=== PATIENT | female | born 2000 | race Caucasian/White ===

== ENCOUNTER 2023-12-18 15:49 | Emergency (ER) | payer OTHER, SELFPAY ==
[2023-12-18 15:49] VITALS: BMI 23.9
[2023-12-18 16:06] VITALS: BP 146/105
--- NOTE | 2023-12-18 17:56 | ED.SKININJ ---
HPI-Injury
General
Chief Complaint: Bite
Time Seen by Provider: 12/18/23 17:29
Travel History
Have you had any contact with someone who has COVID-19?: No
Do you have any symptoms of coronavirus? Fever > 100 degrees, chills, cough, shortness of breath, sore throat, loss of taste or smell, muscle aches, or headache?: No
History of Present Illness-Injury
Initial Injury comments:
23-year-old female presents to the emergency department for evaluation of a bite wound to the right index finger from an unvaccinated cat. 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 The animal is since
and his brain will be sampled for rabies. Patient states her company's protocol is to initiate the rabies postexposure prophylaxis, last tetanus was last year
Review of Systems
Review of Systems
Allergies reviewed?: Yes
All Other Systems: ROS reviewed and negative except as documented in HPI and ROS
Phy Exam
Physical Exam
Physical Exam:
GEN: Well appearing, NAD, WDWN
HEENT: Oral mucosa moist, no scleral icterus
Cardiac: Regular rate
Lung: No respiratory distress, no tachypnea
MSK: No gross deformity or injuries
Skin: Good color, no pallor or jaundice, no rashes. Faint puncture wound to the right index finger pad
Neuro: AO x3, moves all extremities freely
Psych: Calm, cooperative
Course
Orders/Labs/Results
Orders:
Orders
12/18/23 17:48
Rabies Immune Globulin/Pf [HyperRAB] 1,260 unit IM NOW STA
12/18/23 18:00
Rabies Vaccine (Pcec)/Pf [Rabavert Rabies Vacc W-Diluent] 2.5 unit IM .ONCE ONE
Vital Signs
Initial and Last Documented VS:
Initial Vital Signs
Temp Pulse Resp BP Pulse Ox
98.7 F 114 22 146/105 100
12/18/23 16:06 12/18/23 16:06 12/18/23 16:06 12/18/23 16:06 12/18/23 16:06
Last Documented Vital Signs
Temp Pulse Resp BP Pulse Ox
98.7 F 114 22 146/105 100
12/18/23 16:06 12/18/23 16:06 12/18/23 16:06 12/18/23 16:06 12/18/23 16:06
MDM/Problems Addressed
MDM/Problems Addressed:
Will initiate rabies postexposure prophylaxis due to the unvaccinated nature of the cat, prophylactic Augmentin for 5 days
*Critical Care Note
Total Time (30-74mins, 75-104mins- exclusive of procedures): Not Applicable
ED Attending Note
-
Portions of this chart may have been created with voice recognition software.� Occasional wrong word or��sound alike� substitutions may have occurred due to the inherent limitations of voice recognition software.
Discharge Plan
Departure
Patient Disposition: Home (Routine Discharge)
Date of Disposition: 12/18/23
Time of Disposition: 17:58
Patient with high blood pressure during this ER visit?: No
Discharge Problem:
Cat bite of index finger, Need for post exposure prophylaxis for rabies
Instructions: Animal Bites (DC)
Prescriptions:
New
amoxicillin-pot clavulanate 875-125 mg tablet
1 tab PO BID 5 Days Qty: 10 0RF
rabies vacc,human diploid (PF) 2.5 unit recon soln
1 ml IM ONCE Qty: 3 0RF
Rx Instructions:
Administer IM on 12/20, 12/24, and 12/31
Stand Alone Forms: Rabies Vaccine Post Exp Dosing
Interventions
Interventions:
*Risk Screen - Suicide Last Done: 12/18/23 17:39
*General Assessment Last Done: 12/18/23 17:39
*Neglect/Abuse Screening Last Done: 12/18/23 17:39
ED- Fall Risk Assessment Last Done: 12/18/23 17:39
*ED COVID-19 Vaccine History Last Done: 12/18/23 17:39
*Nursing Disposition Last Done: 12/18/23 18:36
ED-Skin Assessment Last Done: 12/18/23 17:39
Discharge Date and Time
Discharge Date/Time: 12/18/23 18:37
Print Language: FRENCH
[2023-12-18] MEDS: HyperRAB 1260 UNIT IM (18:23)
[2023-12-18] MEDS: RABAVERT RABIES VACC W-DILUENT 2.5 UNIT IM (18:24)
== END 2023-12-18 18:37 | disposition home or self-care (01) ==
LOC: EMR 15:49
PROVIDERS: EMERGENCY PHYSICIAN Student in an Organized Health Care Education/Training Program
DX: S61.250A Open bite of right index finger without damage to nail, initial encounter (principal); W55.01XA Bitten by cat, initial encounter; Y99.0 Civilian activity done for income or pay; Z23 Encounter for immunization; Z20.3 Contact with and (suspected) exposure to rabies
CPT/HCPCS: 99284; 90471; 96372; 90375; 90675

== ENCOUNTER 2024-01-01 15:18 | Outpatient (RCR) | payer OTHER, SELFPAY ==
[2023-12-22 11:00] VITALS: BP 145/90
[2023-12-22] MEDS: RABAVERT RABIES VACC W-DILUENT 2.5 UNIT IM (11:12)
[2023-12-25 15:33] VITALS: BP 118/75
[2023-12-25] MEDS: RABAVERT RABIES VACC W-DILUENT 2.5 UNIT IM (15:41)
[2024-01-01 15:31] VITALS: BP 121/71
[2024-01-01] MEDS: RABAVERT RABIES VACC W-DILUENT 2.5 UNIT IM (15:38)
== END 2024-01-02 08:16 | disposition home or self-care (01) ==
LOC: OID 15:18
PROVIDERS: ATTENDING PHYSICIAN Student in an Organized Health Care Education/Training Program; FAMILY PHYSICIAN Family Medicine
DX: Z20.3 Contact with and (suspected) exposure to rabies (principal); Z23 Encounter for immunization
CPT/HCPCS: 90471; 90675